=== PATIENT | male | born 1965 | race Caucasian/White ===

== ENCOUNTER 2017-10-29 11:18 | Observation (INO) ==
--- NOTE | 2017-10-29 11:36 | Emergency Department Note ---
Disposition Clinical Impression: Hypoglycemia, Anemia, Hyponatremia Disposition: Admitted As Inpatient Condition: Fair Referrals: NONE,PCP [Non-Partnered Physician] - Time of Disposition: 13:20 (truman obsv 48) General Adult HPI - General Chief complaint: ED General Medical Stated complaint: low glucose Time Seen by Provider: 10/29/17 11:30 Source: patient, EMS Mode of arrival: EMS Limitations: no limitations Nursing Notes Reviewed: Yes Vital Signs Reviewed: Yes - History of Present Illness HPI Narrative: She was found by family to be decreased altered mental status they immediately did an Accu-Chek was found to be below 40 immediately gave him some suites at the house when remy arrived his Accu-Chek was 79 he was brought to the ER in route to the emergency room he became incontinent this is not new for him family member tells us his actual hemoglobin was 9 2 months ago 7 last month was supposed to have a blood test yesterday but did not have any he now presents here to the emergency room are present but incontinent of stool patient denies any chest pain chest pressure palpitations he denies any cough hemoptysis or sputum production he denies any diarrhea denies any blurred vision loss vision states though that he has episodes of hypoglycemia but never of this low patient states that he has been eating and drinking he is not really sure what is going on as result presents here to the emergency room 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 Denies: confusion, chest pain, cough, diaphoresis, fever/chills, headaches, loss of appetite, malaise, seizure, shortness of breath Treatments Prior to Arrival: none - Related Data Home Medications Medication Instructions Recorded Confirmed Amitriptyline [Elavil] 50 mg PO HS 06/06/17 10/29/17 Aspirin 81 mg PO DAILY 06/06/17 10/29/17 Atorvastatin [Lipitor] 40 mg PO HS 06/06/17 10/29/17 Canagliflozin [Invokana] 300 mg PO DAILY 06/06/17 10/29/17 Carvedilol [Coreg] 3.125 mg PO BID 06/06/17 10/29/17 Diclofenac Sodium [Voltaren] 1 appl TP QID PRN 06/06/17 10/29/17 Dulaglutide [Trulicity] 1.5 mg SQ CARRILLO 06/06/17 10/29/17 Ferrous Sulfate [Iron] 325 mg PO TID 06/06/17 10/29/17 Gabapentin [Neurontin] 800 mg PO TID 06/06/17 10/29/17 Glimepiride [Amaryl] 4 mg PO BID 06/06/17 10/29/17 Meloxicam [Meloxicam] 15 mg PO DAILY 06/06/17 10/29/17 Omeprazole [PriLOSEC] 40 mg PO DAILY 06/06/17 10/29/17 Oxycodone HCl/Acetaminophen 1 tab PO Q4H PRN 06/06/17 10/29/17 [Percocet 10-325 mg Tablet] Promethazine [Phenergan] 25 mg PO Q4H PRN 06/06/17 10/29/17 Tizanidine HCl [Zanaflex] 4 mg PO TID PRN 06/06/17 10/29/17 Adalimumab [Humira] 0.8 ml SQ AD 10/29/17 10/29/17 Diphenoxylate/Atropine 1 tab PO QID PRN 10/29/17 10/29/17 Flonase Allergy Relief 2 spr NS QPM 10/29/17 10/29/17 Insulin NPH, HUMAN [HumuLIN N] 10 unit SQ Q12H 10/29/17 10/29/17 Proctosol-Hc 1 appl RC BID 10/29/17 10/29/17 Previous Rx's Medication Instructions Recorded Albuterol Sulfate [Albuterol 2 puff IH Q2HR PRN #0 inhaler 10/29/16 Inhaler] Allergies Allergy/AdvReac Type Severity Reaction Status Date / Time Amoxicillin Allergy Anaphylaxis Verified 06/06/17 13:05 ampicillin Allergy Anaphylaxis Verified 06/06/17 13:05 latex Allergy See Verified 06/06/17 13:05 Comments nitroglycerin Allergy See Verified 06/06/17 13:05 Comments Penicillins [PCN] Allergy Anaphylaxis Verified 06/06/17 13:05 Sulfa (Sulfonamide Allergy See Verified 06/06/17 13:05 Antibiotics) Comments All systems ED: reviewed and negative except as stated. Review of Systems: As Per HPI Constitutional: Reports: weakness. Denies: fever, chills Eyes: Denies: eye pain, eye discharge ENT ED: Denies: ear pain, throat pain, congestion Cardiovascular: Denies: chest pain, palpitations Respiratory: Denies: cough, dyspnea, wheezes Gastrointestinal: Denies: abdominal pain, nausea, vomiting Genitourinary: Denies: urgency, dysuria, frequency Musculoskeletal: Denies: back pain, neck pain Integumentary: Denies: rash, abrasion Neurological: Denies: headache, weakness Psychiatric: Denies: anxiety, depression Endocrine: Denies: fatigue Hematological/Lymphatic: Denies: easy bleeding Allergic/Immunologic: Denies: facial swelling Past Medical History - Past Medical History Attestation: Yes The following information was validated with the patient. Source: patient, old records reviewed, nursing notes reviewed Medical history: Reports: arthritis, coronary artery disease, diabetes, hyperlipidemia, hypertension, myocardial infarction, peripheral artery disease Surgical history: Reports: angioplasty/stent, coronary bypass (CABG), vascular surgery, other Psychiatric history: Reports: no psych history - Social History Smoking Status: Former smoker Smokeless Tobacco Status: No Alcohol use: Reports: none Drug use: Reports: none Physical Exam - General Limitations: no limitations General appearance: alert, in no apparent distress, anxious - Head Head exam: atraumatic, normocephalic, normal inspection - Eye Eye exam: Present: normal appearance, PERRL, EOMI - ENT ENT exam: normal exam, normal oropharynx, mucous membranes moist, TM's normal bilaterally, normal external ear exam - Neck Neck exam: Present: normal inspection, full ROM, trachea midline - Chest Chest inspection: Present: normal inspection, symmetric chest wall rise - Respiratory Respiratory exam: Present: normal lung sounds bilaterally - Cardiovascular Cardiovascular exam: Present: regular rate, normal rhythm, normal heart sounds - Abdominal Exam Abdominal exam: Present: soft, Non-Tender, normal bowel sounds. Absent: mass, pulsatile mass - Rectal Exam Tooth Cutter Pinion present during exam: Yes (Incontinent of stool defecated on himself) Rectal exam: Present: normal inspection - Extremities Exam Extremities exam: Present: normal inspection, full ROM, normal capillary refill. Absent: tenderness, pedal edema, joint swelling, calf tenderness - Expanded Upper Extremity Exam Shoulder exam: Present: normal inspection, full ROM Arm exam: Present: normal inspection, full ROM Elbow exam: Present: normal inspection, full ROM Forearm/Wrist exam: Present: normal inspection, full ROM Hand exam: Present: normal inspection, full ROM Neurosensory exam: Normal: radial nerve, ulnar nerve, median nerve Vascular exam: Normal: capillary refill, radial pulse, ulnar pulse - Expanded Lower Extremity Exam Hip/Pelvis exam: Present: normal inspection, full ROM Upper leg exam: Present: normal inspection, full ROM Knee exam: Present: normal inspection, full ROM Lower leg exam: Present: normal inspection, full ROM Ankle exam: Present: normal inspection, full ROM Foot/toe exam: Present: normal inspection, full ROM Neurovascular/Tendon exam: Present: normal capillary refill, normal fine/light touch. Absent: motor deficit, sensory deficit, tendon deficit Gait: observed and normal - Back Exam Back exam: Present: normal inspection, full ROM. Absent: muscle spasm - Neurological Exam Neurological exam: Present: alert, oriented X3, CN II-XII intact, normal gait - Psychiatric Psychiatric exam: Present: normal affect, normal mood - Skin Skin exam: Present: warm, dry, intact, pallor Course Course Narrative: Arises actually alert oriented and appears to be appropriate but he is incontinent of stool he has this problem frequently related to his ulcerative colitis patient appears to be pale and diaphoretic this could have been secondary to his hypoglycemia but according to family he recently had a low hemoglobin of 9 repeated at 7 as a result the laboratory data was done patient will be transferred to [facility] [place] he is remaining stable he is doing markedly improved since eating a monitor overnight Vital Signs Temperature 97.7 F 10/29/17 11:21 Pulse Rate 89 10/29/17 11:21 Respiratory Rate 18 10/29/17 11:21 Blood Pressure 154/87 10/29/17 11:21 O2 Sat by Pulse Oximetry 96 10/29/17 11:21 Temperature 97.7 F 10/29/17 11:21 Pulse Rate 89 10/29/17 11:21 Respiratory Rate 18 10/29/17 11:21 Blood Pressure 154/87 10/29/17 11:21 O2 Sat by Pulse Oximetry 96 10/29/17 11:21 Oxygen Delivery Oxygen Delivery Room Air Medical Decision Making - MDM Narrative Medical decision making narrative: Symptomatic anemia metabolic imbalance stroke infection TX - Medical Records Medical records reviewed: Yes I reviewed the patient's medical records. - Lab Data Lab results reviewed: Yes I reviewed the patient's lab results. - Radiology Data Radiology results reviewed: Yes I reviewed the patient's radiology results. Critical Care Time Critical Care Time: No
[2017-10-29] MEDS ORDERED: 0.9 % Sodium Chloride 1,000 ML ONE (11:52)
[2017-10-29] MEDS: 0.9 % Sodium Chloride 1,000 ML IVC SCH ×3 (11:53→18:53)
[2017-10-29 12:02] LABS: Hematocrit 32.4 % (37.5-50.1); Hemoglobin 9.6 g/dL (12.9-16.9); Mean Corpuscular HGB Conc 29.6 g/dL (31.6-35.5); Mean Corpuscular Hemoglobin 24.8 pg (28.0-33.3); Mean Corpuscular Volume 83.7 fL (83.0-100.0); Mean Platelet Volume 8.3 fL (9.4-12.4); Platelet Count 358 K/mcL (140-400); Red Blood Count 3.87 M/mcL (4.19-5.50)
[2017-10-29 12:18] LABS: Alanine Aminotransferase 9 Units/L (7-52); Albumin 2.4 g/dL (3.5-5.7); Albumin/Globulin Ratio 0.7 (1.1-2.2); Alkaline Phosphatase 97 Units/L (34-104); Aspartate Amino Transferase 9 Units/L (13-39); BUN/Creatinine Ratio 17 (6-26); Bilirubin,Total 0.6 mg/dL (0.3-1.0); Blood Urea Nitrogen 16 mg/dL (6-20); Calcium 8.1 mg/dL (8.6-10.3); Carbon Dioxide 24 mEq/L (23-29); Chloride 96 mEq/L (98-107); Globulin 3.4 g/dL (2.4-3.5); Glucose 169 mg/dL (70-105); Osmolality,Calculated 269 (280-300); Potassium 4.4 mEq/L (3.5-5.1); Sodium 127 mEq/L (136-145); Total Protein 5.8 g/dL (6.4-8.9); eGFR For African Americans > 60 (> 60); eGFR For Non-African Americans > 60 (> 60)
[2017-10-29 12:20] LABS: INR 1.4; Prothrombin Time 14.8 Seconds (9.4-12.1)
[2017-10-29 12:22] LABS: Anisocytosis 1+ (Not Present); Basophils # 0.1 K/mcL (0.0-0.2); Hypochromasia Present (Not Present); Lymphocytes # 1.1 K/mcL (0.6-4.6); Monocytes # 0.1 K/mcL (0.0-1.3); Neutrophils # 3.3 K/mcL (1.6-8.9); Polychromasia 1+ (Not Present); Toxic Granulation Present (Not Present)
[2017-10-29] MEDS ORDERED: 0.9 % Sodium Chloride 1,000 ML IVC SCH ×2 (13:47→17:15)
[2017-10-29] MEDS ORDERED: *HR* Dextrose 50 % in Water (Syg) 50 ML SYRINGE IVP PRN (13:47)
[2017-10-29] MEDS ORDERED: Dextrose Gel 15 GM PO PRN ×2 (13:47)
[2017-10-29] MEDS ORDERED: Naloxone 0.4 MG/ML INJ IVP PRN (13:47)
[2017-10-29] MEDS ORDERED: Ondansetron ODT 4 MG TAB.RAPDIS SL PRN (13:47)
[2017-10-29] MEDS ORDERED: Insulin NPH 100 UNIT/ML (x5UNIT) SQ SCH (13:47)
[2017-10-29] MEDS ORDERED: Diphenoxylate/Atropine 1 TAB TABLET PO PRN (13:47)
[2017-10-29] MEDS ORDERED: D5% in Water 1,000 ML IVC PRN (13:47)
[2017-10-29 16:36] LABS: Bilirubin,Urine Negative (Negative); Blood,Urine Negative (Negative); Clarity,Urine Clear (Clear); Color,Urine Yellow (Yellow); Glucose,Urine (UA) >=1000 mg/dL (Normal); Ketones,Urine Negative (Negative); Leukocyte Esterase,Urine Negative (Negative); Nitrite,Urine Negative (Negative); PH,Urine 5.5 pH Units (5.0-8.0); Protein,Urine Negative (Neg-Trace); Specific Gravity,Urine <= 1.005 (1.010-1.025); Urobilinogen,Urine Normal (Normal)
[2017-10-29] MEDS ORDERED: *HR* Glimepiride 2 MG TABLET PO SCH (17:00)
--- NOTE | 2017-10-29 17:13 | Internal Med History&Physical ---
Date of Encounter: 10/29/17 Time of Encounter: 16:30 Assessment and Plan (1) Hypoglycemia Current visit: Yes Status: Acute Now resolved. Amaryl will be held and Accu-Cheks with SSI will be done. Hemoglobin A1c will be checked in a.m. (2) Hyponatremia Current visit: Yes Status: Acute Possibly secondary to diarrhea. Will continue normal saline and recheck labs in a.m. (3) Hypertension Current visit: No Status: Chronic Continue Coreg and monitor blood pressure. Qualifiers: Hypertension type: essential hypertension Qualified Code(s): I10 - Essential (primary) hypertension (4) Anemia Current visit: Yes Status: Acute Will order anemia testing in a.m. Qualifiers: Anemia type: iron deficiency Iron deficiency anemia type: unspecified iron deficiency Qualified Code(s): D50.9 - Iron deficiency anemia, unspecified Internal Medicine - H&P: HPI Chief complaint: Hypoglycemia, confusion Admitted From: Emergency Dept Plans for Post Hospital Care: Home History of present illness: Mr. Vasquez is a 51 year old male who came to emergency room after his noted him to appear confused at home and have slurred speech. Blood sugar was checked with result of 42 mg percent. He was brought to emergency room where evaluation showed hyponatremia with anemia and bandemia. He was admitted to [facility] for for ongoing care needs. He states he was diagnosed with DM2 approximately 2011. He states he checks his sugars several times a day routinely. Weight has decreased by approximately 35 pounds in the past year, unintentional. He has history of hyperlipidemia but denies thyroid disease. Past Med Surg Social Fam HX - Past Medical History Medical history: arthritis, coronary artery disease, diabetes, hyperlipidemia, hypertension, myocardial infarction, peripheral artery disease Psychiatric history: no psych history - Past Surgical History Surgical History: angioplasty/stent, coronary bypass (CABG), vascular surgery, other - Social History Smoking Status: Former smoker Smokeless Tobacco Status: No Alcohol use: none Drug use: none - Family History Mother History Unknown: Yes Internal Medicine - H&P: Meds Albuterol Sulfate [Albuterol Inhaler] 2 puff IH Q2HR PRN #0 inhaler 10/29/16 [Rx ] Amitriptyline [Elavil] 50 mg PO HS 06/06/17 [History] Aspirin 81 mg PO DAILY 06/06/17 [History] Atorvastatin [Lipitor] 40 mg PO HS 06/06/17 [History] Canagliflozin [Invokana] 300 mg PO DAILY 06/06/17 [History] Carvedilol [Coreg] 3.125 mg PO BID 06/06/17 [History] Diclofenac Sodium [Voltaren] 1 appl TP QID PRN 06/06/17 [History] Dulaglutide [Trulicity] 1.5 mg SQ CARRILLO 06/06/17 [History] Ferrous Sulfate [Iron] 325 mg PO TID 06/06/17 [History] Gabapentin [Neurontin] 800 mg PO TID 06/06/17 [History] Glimepiride [Amaryl] 4 mg PO BID 06/06/17 [History] Meloxicam [Meloxicam] 15 mg PO DAILY 06/06/17 [History] Omeprazole [PriLOSEC] 40 mg PO DAILY 06/06/17 [History] Oxycodone HCl/Acetaminophen [Percocet 10-325 mg Tablet] 1 tab PO Q4H PRN [History] Promethazine [Phenergan] 25 mg PO Q4H PRN 06/06/17 [History] Tizanidine HCl [Zanaflex] 4 mg PO TID PRN 06/06/17 [History] Adalimumab [Humira] 0.8 ml SQ AD 10/29/17 [History] Diphenoxylate/Atropine 1 tab PO QID PRN 10/29/17 [History] Flonase Allergy Relief 2 spr NS QPM 10/29/17 [History] Insulin NPH, HUMAN [HumuLIN N] 10 unit SQ Q12H 10/29/17 [History] Proctosol-Hc 1 appl RC BID 10/29/17 [History] 3 Allergy/AdvReac Type Severity Reaction Status Date / Time Amoxicillin Allergy Anaphylaxis Verified 06/06/17 13:05 ampicillin Allergy Anaphylaxis Verified 06/06/17 13:05 latex Allergy See Verified 06/06/17 13:05 Comments nitroglycerin Allergy See Verified 06/06/17 13:05 Comments Penicillins [PCN] Allergy Anaphylaxis Verified 06/06/17 13:05 Sulfa (Sulfonamide Allergy See Verified 06/06/17 13:05 Antibiotics) Comments All Systems PM: A 10-system review of systems was performed and is negative for pertinent findings except as documented above in the HPI. Review of systems: Gen.: He states his weight has decreased approximately 35 pounds in the past year, unintentional Cardiovascular: He has history of hypertension. He has known left leg ASPVD and states he had vascular surgery but does not know details. He has known CAD and had 2 vessel CABG September 2016. The postoperative period was complicated by wound dehiscence on 2 occasions. He finally had sternectomy done at [facility] with a muscle flap placed. He denies heart failure DVT or pulmonary embolus. Respiratory: He smoked from age [age] up to 2 packs per day. He thinks he has been diagnosed as COPD but does not use home oxygen. GI: He was diagnosed with ulcerative colitis June 2017. He has had diarrhea for at least 1 year without improvement on prescribed therapy. He has GERD symptoms. He denies disorders of his liver gallbladder more exocrine pancreas. He has had anemia with upper and lower endoscopy and capsule endoscopy failing to locate the source of bleeding per his report. : He denies hematuria or dysuria or kidney stones Neurologic: He denies large distribution strokes or seizures. Endocrine: As per history of present illness Hematology/oncology: He has been diagnosed with anemia with iron deficiency and has been prescribed ferrous sulfate replacement. He denies internal malignancies Psychiatric: Denies anxiety depression or other mental health issues Muscle skeletal: He had sternotomy as per above. He has DJD, chronic low back pain, left wrist surgery, bilateral knee scopes multiple times, and left shoulder surgery. He denies gout. - Constitutional Vitals: Temp Pulse Resp BP Pulse Ox 98.1 F 98 17 127/71 97 10/29/17 14:32 10/29/17 14:32 10/29/17 14:32 10/29/17 14:32 10/29/17 14:32 Exam: Gen.: He is a well-developed well-nourished male sitting in a chair at bedside who appears pale. HEENT: Head is atraumatic and normocephalic. Eyes: EOMI. There is no scleral icterus. Mouth: Mucosa is moist. Neck: Supple and nontender. There is no thyromegaly or adenopathy noted. Heart: Regular without murmurs gallops or ectopics Lungs: No wheezes or crackles are heard. Chest: He has had sternotomy and has muscle flap in the midline chest area. The scar is well-healed. Abdomen: Soft and nontender. Exam is limited because he is in the seated position. Extremities: There is no cyanosis edema or clubbing noted. Dorsalis pedis and posttibial pulses are trace palpable bilaterally. Neurologic: Mental status: He is talkative and a good historian. Cranial nerves : Smile is symmetric. Forehead wrinkles bilaterally. Tongue protrudes midline. EOMI. Motor: There is no pronator drift. Cerebellar: Finger to nose is intact bilaterally. Skin: Warm and dry Internal Med - H&P Results - Labs CBC & Chem 7: 10/29/17 11:50 10/29/17 11:50 Labs: Urine 10/29/17 Range/Units 16:20 Urine Color Yellow (Yellow) Urine Clarity Clear (Clear) Urine pH 5.5 (5.0-8.0) pH Units Ur Specific [place] <= 1.005 L (1.010-1.025) Urine Protein Negative (Neg-Trace) mg/dL Urine Glucose (UA) >=1000 H (Normal) mg/dL
[2017-10-29] MEDS: Insulin LISPRO 300 UNITS/3 ML VIAL SQ SCH ×2 (18:46→22:00)
[2017-10-29] MEDS: Gabapentin 400 MG CAPSULE PO SCH ×2 (18:47→21:59)
[2017-10-29] MEDS: *HR* OxyCODONE/APAP 10/325 TABLET PO PRN (18:48)
[2017-10-29] MEDS: Fluticasone Propionate Nasal 50 MCG/SPRAY BOTTLE NS SCH (18:53)
[2017-10-29] MEDS: tiZANidine 4 MG TABLET PO PRN (19:00)
[2017-10-30 04:47] LABS: Eosinophils # 0.1 K/mcL (0.0-0.6); Hematocrit 24.7 % (37.5-50.1); Hemoglobin 7.5 g/dL (12.9-16.9); Mean Corpuscular HGB Conc 30.4 g/dL (31.6-35.5); Mean Corpuscular Volume 82.3 fL (83.0-100.0); Mean Platelet Volume 8.2 fL (9.4-12.4); Platelet Count 294 K/mcL (140-400); Red Cell Distribution Width 14.8 % (11.5-14.5)
[2017-10-30 05:07] LABS: BUN/Creatinine Ratio 16 (6-26); Blood Urea Nitrogen 14 mg/dL (6-20); Calcium 7.3 mg/dL (8.6-10.3); Carbon Dioxide 23 mEq/L (23-29); Chloride 99 mEq/L (98-107); Glucose 175 mg/dL (70-105); Osmolality,Calculated 271 (280-300); Potassium 4.2 mEq/L (3.5-5.1); Sodium 128 mEq/L (136-145); eGFR For African Americans > 60 (> 60); eGFR For Non-African Americans > 60 (> 60)
[2017-10-30 06:11] LABS: Lymphocytes # 1.3 K/mcL (0.6-4.6); Monocytes # 0.2 K/mcL (0.0-1.3); Neutrophils # 1.7 K/mcL (1.6-8.9)
[2017-10-30 06:12] LABS: Anisocytosis 1+ (Not Present); Dohle Bodies Present (Not Present); Hypochromasia Present (Not Present); Platelet Estimate Normal (Normal); Polychromasia 1+ (Not Present)
[2017-10-30 06:14] LABS: Microcytosis Present (Not Present)
[2017-10-30 06:15] LABS: Toxic Granulation Present (Not Present); Toxic Vacuolation Present (Not Present)
[2017-10-30] MEDS: (Canagliflozin [Invokana] 300 MG) PO SCH (09:09)
[2017-10-30] MEDS: Insulin LISPRO 300 UNITS/3 ML VIAL SQ SCH ×4 (09:09→21:33)
[2017-10-30] MEDS: 0.9 % Sodium Chloride 1,000 ML IVC SCH (09:09)
[2017-10-30] MEDS: tiZANidine 4 MG TABLET PO PRN ×2 (09:57→16:33)
[2017-10-30] MEDS: Aspirin 81 MG TAB.CHEW PO SCH (09:57)
[2017-10-30] MEDS: *HR* OxyCODONE/APAP 10/325 TABLET PO PRN ×3 (09:57→22:02)
[2017-10-30] MEDS: Gabapentin 400 MG CAPSULE PO SCH ×3 (09:57→21:37)
[2017-10-30 10:17] LABS: Hemoglobin A1C 5.3 %
[2017-10-30 10:26] LABS: Ferritin 223 ng/ml (20-250); Iron < 10 mcg/dL (65-175); Transferrin 95 mg/dL (203-362)
--- NOTE | 2017-10-30 10:26 | Internal Med Progress Note ---
Date of Encounter: 10/30/17 Time of Encounter: 10:15 - Assessment and plan (1) Hypoglycemia Current Visit: Yes Status: Acute Assessment and plan: October 30. Stable off Amaryl. Continue other medications and Accu-Cheks with SSI. Hemoglobin A1c is pending. (2) Hyponatremia Current Visit: Yes Status: Acute Assessment and plan: October 30. Slightly improved at 128. (3) Hypertension Current Visit: No Status: Chronic Assessment and plan: October 30. Continue Coreg Qualifiers: Hypertension type: essential hypertension Qualified Code(s): I10 - Essential (primary) hypertension (4) Anemia Current Visit: Yes Status: Acute Assessment and plan: October 30. Anemia testing is pending. Hemoglobin decreased to 7.5. Qualifiers: Anemia type: iron deficiency Iron deficiency anemia type: unspecified iron deficiency Qualified Code(s): D50.9 - Iron deficiency anemia, unspecified - Subjective Interval history: October 30. He has no new complaints and feels improved. - Constitutional Vitals: Temp Pulse Resp BP Pulse Ox 98.6 F 100 20 107/70 94 10/30/17 06:33 10/30/17 06:33 10/30/17 06:33 10/30/17 06:33 10/30/17 06:33 Exam: He is sitting on the side of the bed resting comfortably. His affect is bright and cheerful. I reviewed his medications, lab results, and CT results. Internal Medicine: Result - Labs CBC & Chem 7: 10/30/17 04:25 10/30/17 04:25 Labs: Short CBC 10/30/17 Range/Units 04:25 WBC 3.2 L (4.3-11.1) K/mcL Hgb 7.5 L D (12.9-16.9) g/dL Hct 24.7 L (37.5-50.1) % Plt Count 294 (140-400) K/mcL Neutrophils # 1.7 (1.6-8.9) K/mcL BMP 10/30/17 04:25 Sodium 128 L Potassium 4.2 Chloride 99 Carbon Dioxide 23 BUN 14 Creatinine 0.88 Glucose 175 H Calcium 7.3 L Urine 10/29/17 Range/Units 16:20 Urine Color Yellow (Yellow) Urine Clarity Clear (Clear) Urine pH 5.5 (5.0-8.0) pH Units Ur Specific [place] <= 1.005 L (1.010-1.025) Urine Protein Negative (Neg-Trace) mg/dL Urine Glucose (UA) >=1000 H (Normal) mg/dL - ABG Interpretation ABG results: PT/INR, D-dimer PT 14.8 Seconds (9.4-12.1) H 10/29/17 11:50 - Impressions Impressions Abdomen/Pelvis CT 10/29/17 17:06 IMPRESSION: Stable thickening of the majority of the colon. Correlation for infectious or inflammatory colitis is recommended. Cholelithiasis. Caliber of the appendix is mildly increased. There are low-density contents within the appendiceal lumen raising the possibility of mucocele. D/ / Barbie Hoff Cha, MD / Barbie Hoff Cha, MD Interpreting Provider: Barbie Hoff Cha, MD Chest CT 10/29/17 17:06 IMPRESSION: Extensive left basilar pleural thickening and parenchymal increased density including lower lobe dependent consolidation, possibly chronic. Short-term follow-up CT in 3 months is recommended to confirm stability. Clustered nodules within the posterior right upper lobe and to lesser extent posterior right lower lobe, likely inflammatory. This finding also can be followed on the subsequent study. Postsurgical changes of sternotomy. There is no bony fusion of the sternum; instead, there is intervening soft tissue attenuation which could represent scarring/granulation tissue. Correlation for the possibility of osteomyelitis is recommended. D/ / Barbie Hoff Cha, MD / Barbie Hoff Cha, MD Interpreting Provider: Barbie Hoff Cha, MD Consult Discharge Plan - Plan Referrals: Lam Perkins MD [Primary Care Provider] - 1 week
[2017-10-30 10:50] LABS: Folate 9.1 ng/mL (3.0-16.0)
[2017-10-30] MEDS: cefTRIAXone 1,000 MG in Water for inj. (sterile) 10 ML IVP SCH (11:12)
[2017-10-30] MEDS: Azithromycin 500 MG in D5% in Water 250 ML IVPB SCH (11:12)
[2017-10-30] MEDS: Fluticasone Propionate Nasal 50 MCG/SPRAY BOTTLE NS SCH (20:17)
[2017-10-30] MEDS: Lactobacillus 1 EACH CAP.SPRINK PO SCH (21:36)
[2017-10-31 06:45] VITALS: BP 106/62
[2017-10-31 07:46] LABS: Hematocrit 29.1 % (37.5-50.1); Hemoglobin 8.6 g/dL (12.9-16.9); Mean Corpuscular HGB Conc 29.6 g/dL (31.6-35.5); Mean Corpuscular Hemoglobin 24.7 pg (28.0-33.3); Mean Corpuscular Volume 83.6 fL (83.0-100.0); Mean Platelet Volume 8.1 fL (9.4-12.4); Platelet Count 311 K/mcL (140-400); Red Blood Count 3.48 M/mcL (4.19-5.50); Red Cell Distribution Width 14.8 % (11.5-14.5)
[2017-10-31] MEDS: Insulin LISPRO 300 UNITS/3 ML VIAL SQ SCH ×2 (07:46→11:41)
[2017-10-31] MEDS: Lactobacillus 1 EACH CAP.SPRINK PO SCH (07:48)
[2017-10-31] MEDS: Aspirin 81 MG TAB.CHEW PO SCH (07:48)
[2017-10-31] MEDS: Gabapentin 400 MG CAPSULE PO SCH (07:48)
[2017-10-31] MEDS: cefTRIAXone 1,000 MG in Water for inj. (sterile) 10 ML IVP SCH (07:49)
[2017-10-31 07:57] LABS: BUN/Creatinine Ratio 15 (6-26); Blood Urea Nitrogen 12 mg/dL (6-20); Calcium 8.1 mg/dL (8.6-10.3); Carbon Dioxide 25 mEq/L (23-29); Chloride 102 mEq/L (98-107); Glucose 136 mg/dL (70-105); Osmolality,Calculated 278 (280-300); Potassium 4.3 mEq/L (3.5-5.1); Sodium 133 mEq/L (136-145); eGFR For African Americans > 60 (> 60); eGFR For Non-African Americans > 60 (> 60)
[2017-10-31] MEDS: (Canagliflozin [Invokana] 300 MG) PO SCH (09:36)
[2017-10-31] MEDS ORDERED: IRON DEXTRAN COMPLEX IVPB ONE (10:00)
[2017-10-31] MEDS ORDERED: SODIUM CHLORIDE 0.9% IVPB ONE (10:00)
[2017-10-31 10:05] LABS: Eosinophils # 0.2 K/mcL (0.0-0.6); Lymphocytes # 1.1 K/mcL (0.6-4.6); Monocytes # 0.2 K/mcL (0.0-1.3); Neutrophils # 1.8 K/mcL (1.6-8.9)
[2017-10-31 10:06] LABS: Anisocytosis 1+ (Not Present); Platelet Estimate Normal (Normal); Poikilocytosis 1+ (Not Present); Polychromasia 1+ (Not Present)
--- NOTE | 2017-10-31 10:23 | Discharge Summary ---
Date of Encounter: 10/31/17 Time of Encounter: 10:10 - Discharge Diagnosis (1) Hypoglycemia Priority: Primary Status: Resolved (2) Anemia Priority: Secondary Status: Acute Qualifiers: Anemia type: iron deficiency Iron deficiency anemia type: unspecified iron deficiency Qualified Code(s): D50.9 - Iron deficiency anemia, unspecified (3) Hyponatremia Priority: Secondary Status: Acute (4) Hypertension Priority: Secondary Status: Chronic Qualifiers: Hypertension type: essential hypertension Qualified Code(s): I10 - Essential (primary) hypertension - Discharge Medications Prescriptions: Cefuroxime PO [Ceftin] 500 mg PO Q12HR #8 tablet Azithromycin [Zithromax] 250 mg PO DAILY #4 tablet Lactobacillus [Culturelle] 1 each PO BID #8 cap.sprink Home Medications: Albuterol Sulfate [Albuterol Inhaler] 2 puff IH Q2HR PRN #0 inhaler 10/29/16 [Rx ] Amitriptyline [Elavil] 50 mg PO HS 06/06/17 [History] Aspirin 81 mg PO DAILY 06/06/17 [History] Atorvastatin [Lipitor] 40 mg PO HS 06/06/17 [History] Canagliflozin [Invokana] 300 mg PO DAILY 06/06/17 [History] Carvedilol [Coreg] 3.125 mg PO BID 06/06/17 [History] Diclofenac Sodium [Voltaren] 1 appl TP QID PRN 06/06/17 [History] Dulaglutide [Trulicity] 1.5 mg SQ CARRILLO 06/06/17 [History] Gabapentin [Neurontin] 800 mg PO TID 06/06/17 [History] Omeprazole [PriLOSEC] 40 mg PO DAILY 06/06/17 [History] Oxycodone HCl/Acetaminophen [Percocet 10-325 mg Tablet] 1 tab PO Q4H PRN [History] Promethazine [Phenergan] 25 mg PO Q4H PRN 06/06/17 [History] Tizanidine HCl [Zanaflex] 4 mg PO TID PRN 06/06/17 [History] Adalimumab [Humira] 0.8 ml SQ AD 10/29/17 [History] Diphenoxylate/Atropine 1 tab PO QID PRN 10/29/17 [History] Flonase Allergy Relief 2 spr NS QPM 10/29/17 [History] Proctosol-Hc 1 appl RC BID 10/29/17 [History] Azithromycin [Zithromax] 250 mg PO DAILY #4 tablet 10/31/17 [Rx] Cefuroxime PO [Ceftin] 500 mg PO Q12HR #8 tablet 10/31/17 [Rx] Lactobacillus [Culturelle] 1 each PO BID #8 cap.sprink 10/31/17 [Rx] Allergies/Adverse Reactions: 3 Allergy/AdvReac Type Severity Reaction Status Date / Time Amoxicillin Allergy Anaphylaxis Verified 06/06/17 13:05 ampicillin Allergy Anaphylaxis Verified 06/06/17 13:05 latex Allergy See Verified 06/06/17 13:05 Comments nitroglycerin Allergy See Verified 06/06/17 13:05 Comments Penicillins [PCN] Allergy Anaphylaxis Verified 06/06/17 13:05 Sulfa (Sulfonamide Allergy See Verified 06/06/17 13:05 Antibiotics) Comments Procedures/tests Complete & Pending: Procedures Performed prior 72 hours Category Date Time Status CT abd pelvis wo no iv no oral [CT] Routine Cat Scan 10/29/17 17:[address] chest wo con [CT] Routine Cat Scan 10/29/17 17:06 Completed Date of admission: 10/29/17 13:39 Primary care physician: Lam Perkins MD - Patient Status Disposition: Home, Self-Care Condition: Fair Functional capacity at discharge: independent ambulation Overall status at discharge: patient is progressing back to baseline - Discharge Instructions Follow Up With: Lam Perkins MD [Primary Care Provider] - 1 week - Diet and Activity Activity: resume usual activities as tolerated Diet: advance to your usual diet Hospital course: Mr. Vasquez is a 51 year old male who came to emergency room after his noted him to appear confused at home and have slurred speech. Blood sugar was checked with result of 42 mg percent. He was brought to emergency room where evaluation showed hyponatremia with anemia and bandemia. He was admitted to [facility] for for ongoing care needs. Initial orders were written by the emergency room physician. I saw him on October 29 and performed a history and physical. Amaryl was held and Accu- Cheks with SSI were done. His blood sugar returned to a satisfactory range. Hemoglobin A1c returned acceptable at 5.3%. He will remain off Amaryl at discharge. His PCP can monitor blood sugars and adjust medications as needed. Chest and abdominal/pelvis CT was done to further evaluate bandemia. The chest CT showed clustered nodules in the posterior right upper lobe and right lower lobe, likely inflammatory. There were also changes seen in the left lower lobe that were possibly chronic. A follow-up chest CT in 3 months was recommended. His PCP can order this. He was started on Rocephin and Zithromax and will continue with antibiotics and probiotics for 4 additional days at discharge. Anemia testing showed iron less than 10, transferrin 95, ferritin 223, B12 1031 , folate 9.1. He was given an iron dextran infusion. He will discontinue oral ferrous sulfate since he is not absorbing it. His PCP can monitor anemia and iron status. His sodium improved to 133 by day of discharge. He had no new problems and on 10/29/2017 he was stable for discharge home. He will follow with his PCP Dr. Lam Perkins within 1 week. - Time Spent with Patient Total time spent providing and/or coordinating discharge services: - Constitutional Vitals: Temp Pulse Resp BP Pulse Ox 98.9 F 88 18 106/62 93 10/31/17 06:44 10/31/17 06:44 10/31/17 06:44 10/31/17 06:44 10/31/17 10:08
[2017-10-31] MEDS: Azithromycin 500 MG in D5% in Water 250 ML IVPB SCH (11:40)
[2017-10-31] MEDS ORDERED: Hydrocortisone Rectal 2.5% CRM 28 GM TUBE RC SCH (21:00)
== END 2017-10-31 13:15 | disposition home or self-care (01) ==
LOC: INPPIK 11:18 → EMEROOPIK 11:18 → INPPIK 13:53
PROVIDERS: ADMIT Internal Medicine; ATTEND Internal Medicine